=== PATIENT | female | born 1995 | race Caucasian/White ===

== ENCOUNTER 2016-10-13 07:49 | Emergency (ER) | payer OTHER ==
[~2016-10-13 07:49] MED LIST: ALBUTEROL17 GM INH; MEDROL PO; NO MEDICATIONS; PHENERGAN W/CO120 ML PO; ZITHROMAX PO
== END 2016-10-13 07:55 | disposition home or self-care (01) ==
LOC: SED 07:49
DX: F43.0 Acute stress reaction (principal); F41.0 Panic disorder [episodic paroxysmal anxiety]
CPT/HCPCS: 99283